=== PATIENT | female | born 1960 | race Caucasian/White ===

== ENCOUNTER 2016-09-26 12:24 | Emergency (ER) | payer BC ==
[~2016-09-26 12:24] MED LIST: ASA CHILDREN'S81 MG PO; BYSTOLIC5 MG PO; CELEXA10 MG; CELEXA10 MG PO; FLEXERIL-DPS10 MG PO; HABITROL DPS21 MG TP; PRILOSEC40 MG PO; TYLENOL DPS325 MG PO
--- NOTE | 2016-10-06 08:39 | ER ---
ADMIT: 09/26/2016 RM/LOC: ER [facility] MR#: [id number] [address] [id number] [facility] [place] [address] [place] [id number] Emergency Room Report SEX: F AGE: 55 : 1960 DATE: 09/26/2016 This 55-year-old female comes to the Emergency Department with several hours worth of headache. She states it is similar to her prior migraines. She states normally she is able to get on top of it, but this one, she lost control of. Subsequently came to the Emergency Department. See T-sheet for history and physical. The patient diagnosed with headache. She was given Toradol, diphenhydramine, Zofran, and Ultram. Reported feeling better, subsequently discharged. Encouraged to follow up with primary doctor yet this week. DIAGNOSIS: Headache. Natanael Haile MD/ arvin JOB #: [id number] CC: Ramez Barros MD, Attending Physician Svetlana Sylvester MD, Family Physician
== END 2016-09-26 15:02 | disposition home or self-care (01) ==
LOC: ER 12:24
DX: R51 Headache (principal); I10 Essential (primary) hypertension

== ENCOUNTER → 2017-02-08 | Outpatient (CLI) | payer BC | END | disposition home or self-care (01) | LOC: RAD.S 02-05 09:21 | DX: Z12.31 Encounter for screening mammogram for malignant neoplasm of breast (principal); Z13.820 Encounter for screening for osteoporosis; Z78.0 Asymptomatic menopausal state; Z85.3 Personal history of malignant neoplasm of breast ==